=== PATIENT | male | born 1985 | race Two or more races ===

== ENCOUNTER 2018-03-27 21:12 | Emergency (ER) | payer OTHER ==
[2018-03-27] MEDS ORDERED: Pantoprazole 80 MG in Sodium Chloride 0.9% 100 ML IV ONE (21:29)
--- NOTE | 2018-03-27 21:36 | ED Physician Chart ---
Chest Pain HPI - General Chief Complaint: Chest Pain Stated Complaint: CHEST PAIN Time Seen by Provider: 03/27/18 21:31 Source: patient - History of Present Illness complaint: chest pain Time: 19:34 Duration: intermittent (pain getting better and he thinks it is assoc with acid reflux) Onset: during rest Pain Location: substernal, epigastric - Related Data Home Medications Medication Instructions Recorded Confirmed Omeprazole 40 mg PO DAILY 03/27/18 03/27/18 Allergies Allergy/AdvReac Type Severity Reaction Status Date / Time No Known Allergies Allergy Verified 03/27/18 21:32 Review of Systems Constitutional: Denies: 2, 3 Eyes: Denies: Eye Pain, Eye Discharge ENT ED: Denies: Ear Pain, Throat Pain Cardiovascular: Reports: Chest Pain, Palpitations, Dyspnea On Exertion Respiratory: Denies: 2, 3 Gastrointestinal: Denies: Abdominal Pain, Nausea Genitourinary: Denies: Urgency, Dysuria Musculoskeletal: Denies: Back Pain, Joint Swelling Integumentary: Denies: Rash, Lesions Neurological: Denies: Headache, Weakness Psychiatric: Denies: Anxiety, Depression Endocrine: Denies: 2, 3 Hematological/Lymphatic: Denies: Easy Bleeding, Easy Bruising Chest Pain PMH - Past Medical History Medical history: Reports: Other (anxiety prediabetes) Physical Exam - General General appearance: alert, anxious - Head Head exam: atraumatic - Eye Eye exam: Present: normal appearance - Expanded Eye Exam Pupils: Bilateral: regular, round - Expanded ENT Exam External ear exam: Present: normal external inspection Mouth exam: Present: normal external inspection - Chest Chest inspection: Present: normal inspection - Respiratory Respiratory exam: Present: normal lung sounds bilaterally - Cardiovascular Cardiovascular exam: Present: regular rate, normal rhythm, normal heart sounds - Abdominal Exam Abdominal exam: Present: soft - Extremities Exam Extremities exam: Present: normal inspection, full ROM - Expanded Lower Extremity Exam Hip/Pelvis exam: Present: normal inspection Upper leg exam: Present: normal inspection Lower leg exam: Present: normal inspection Ankle exam: Present: normal inspection Foot/toe exam: Present: normal inspection Gait: not tested/not observed - Back Exam Back exam: Present: normal inspection - Neurological Exam Neurological exam: Present: alert, oriented X3, CN II-XII intact - Expanded Neurological Exam Patient oriented to: Present: person, place, time Speech: Present: fluid speech - Psychiatric Psychiatric exam: Present: normal affect, normal mood, anxious
[2018-03-27 21:58] LABS: EOSINOPHILE ABSOLUTE 0.3 Th/cmm (0.1-0.4); LYMPHOCYTE ABSOLUTE 3.5 Th/cmm (1.5-3.0); RED CELL DISTRIBUTION WIDTH 11.9 % (11.5-20.0)
[2018-03-27 22:02] LABS: % BASOPHILS 0.4 % (0.0-2.0); % EOSINOPHILS 2.8 % (0.0-5.0); % LYMPHOCYTES 33.5 % (20.0-50.0); % MONOCYTES 9.9 % (2.0-10.0); % NEUTROPHILS 53.4 % (40.0-80.0); HEMATOCRIT 49.7 % (41.0-60); HEMOGLOBIN 16.9 gm/dL (12-16); MEAN CELL VOLUME 83.5 fl (80-99); MEAN CORPUSCULAR HEMOGLOBIN 28.5 pg (26.0-30.0); MEAN CORPUSCULAR HGB CONC 34.1 pg (28.0-36.0); MEAN PLATELET VOLUME 7.5 fl; NEUTROPHILE ABSOLUTE 5.6 Th/cmm (1.8-8.0); PLATELET COUNT 301 Th/cmm (150-400); RED BLOOD COUNT 5.95 Mil/cmm (4.30-5.70); WHITE BLOOD COUNT 10.4 Th/cmm (4.8-10.8)
[2018-03-27] MEDS ORDERED: Maalox 30 mL Cup PO ONE (22:12)
[2018-03-27 22:25] LABS: ALB/GLOB RATIO 1.3 (1.0-1.8); ALBUMIN 4.5 gm/dL (4.2-5.5); ALKALINE PHOSPHATASE 99 U/L (34-104); ANION GAP 14.5 (7.0-16.0); BILIRUBIN,TOTAL 0.5 mg/dL (0.3-1.0); BUN - UREA NITROGEN 13 mg/dL (7-25); CARBON DIOXIDE 24.9 mEq/L (21.0-31.0); CHLORIDE 102 mEq/L (98-107); CREATININE - SERUM 1.2 mg/dL (0.7-1.3); GFR AFRICAN-AMERICAN > 60.0 ml/min (>90); GFR NON AFRICAN-AMERICAN > 60.0 ml/min; GLUCOSE 192 mg/dL (70-105); POTASSIUM SERUM 4.4 mEq/L (3.5-5.1); SGOT 56 U/L (13-39); SGPT/ALT 84 U/L (7-52); SODIUM SERUM 137 mEq/L (136-145); TOTAL PROTEIN,SERUM 7.9 gm/dL (6.0-8.3)
== END 2018-03-27 23:18 | disposition home or self-care (01) ==
LOC: ER 21:12
DX: R07.2 Precordial pain (principal); R10.13 Epigastric pain; F41.9 Anxiety disorder, unspecified; Z88.8 Allergy status to other drugs, medicaments and biological substances
CPT/HCPCS: 99284; 96365; 93005; 84484; 36415; 85025; 82550; 83036; 80053; C9113; Z7502